=== PATIENT | male | born 1945 | race Caucasian/White ===

== ENCOUNTER → 2019-03-21 | Outpatient (CLI) | payer MEDICARE ==
[~2019-03-21] MED LIST: ASPIRIN 32325 MG/TAB PO; ATORVASTATIN; CELEBREX; CENTRUM1 TAB PO; CEPHALEXIN500 M1 PO; EFFIENT10 MG PO; GARLIC OIL NATUR1 MG PO; GLUCOSAMINE CHO1 CAP PO; HCTZ 25MG25 MG PO; LIPITOR40 MG PO; LORTAB 5/500 501 TAB PO; MINOCYCLIN100 MG/CAP PO; MULTIPLE VITAMI1 CAP PO; PREVACID 30MG30 M1 PO; PREVACID30 MG PO; THEO-24 20200 MG/CAP PO; TUDORZA IH; htn med
== END ==
LOC: COL.RAD 13:42
DX: I70.203 Unspecified atherosclerosis of native arteries of extremities, bilateral legs (principal); R91.8 Other nonspecific abnormal finding of lung field; Z95.820 Peripheral vascular angioplasty status with implants and grafts
CPT/HCPCS: Q9967

== ENCOUNTER → 2021-01-06 | Outpatient (CLI) | payer MEDICARE | LOC: COL.RAD | DX: I65.22 Occlusion and stenosis of left carotid artery (principal); J43.9 Emphysema, unspecified; G31.9 Degenerative disease of nervous system, unspecified; I66.02 Occlusion and stenosis of left middle cerebral artery | CPT/HCPCS: Q9967 ==